=== PATIENT | female | born 1995 | race Caucasian/White ===

== ENCOUNTER 2018-12-03 08:30 | Outpatient (CLI) | payer OTHER ==
--- NOTE | 2018-12-03 16:05 | XRAY Report ---
Reason: RIGHT KNEE PAIN Procedure Date: 12/03/2018 Accession Number: [id number] Procedure: XRN - Knee 3 View RT CPT Code: FULL RESULT: EXAM: RIGHT KNEE RADIOGRAPHY EXAM DATE: 12/03/2018 08:53 AM. CLINICAL HISTORY: RIGHT KNEE PAIN. COMPARISON: None. TECHNIQUE: 3 views. FINDINGS: Bones: Normal. No fractures or bone lesions. Joints: Normal. No effusion. No subluxations. Soft Tissues: Anterior soft tissue swelling IMPRESSION: Anterior swelling, but no evidence of fracture or joint effusion. [facility]
== END 2018-12-03 08:31 | disposition home or self-care (01) ==
LOC: DI.N 08:30
PROVIDERS: ATTEND Specialist
DX: M25.561 Pain in right knee (principal); R22.41 Localized swelling, mass and lump, right lower limb